=== PATIENT | male | born 1985 | race Hispanic/Latino ===

== ENCOUNTER 2018-05-30 14:54 | Emergency (ER) | payer SELFPAY | END 2018-05-30 15:10 | disposition home or self-care (01) | LOC: MADERS 14:54 | DX: S40.021A Contusion of right upper arm, initial encounter (principal); V69.9XXA Occupant (driver) (passenger) of heavy transport vehicle injured in unspecified traffic accident, initial encounter | CPT/HCPCS: 99283 ==